=== PATIENT | female | born 1975 | race Caucasian/White ===

== ENCOUNTER 2017-06-12 09:48 | Inpatient (IN) | payer BC ==
[~2017-06-12 09:48] MED LIST: Iopamidol 370 76% 100 ML VIAL ONE
[2017-06-12 10:30] LABS: #Eosinphils 0.1 thou/uL (0.0-0.7); #Lymphocytes 1.9 thou/uL (1.20-3.40); #Monocytes 0.5 thou/uL (0.11-0.59); #Neutrophils 6.6 thou/uL (1.40-6.50); %Basophils 0.5 % (0.0-1.0); %Eosinophils 1.3 % (0.0-10.0); %Lymphocytes 20.8 % (21.0-51.0); %Monocytes 5.9 % (0.0-10.0); Hematocrit 38.5 % (36.0-47.0); Mean Platelet Volume 9.6 fL (7.4-10.4); Red Blood Cell (RBC) Count 4.37 mill/uL (4.20-5.40); White Blood Cell (WBC) Count 9.3 thou/uL (4.8-10.8)
--- NOTE | 2017-06-12 10:35 | RAD ---
2 VIEW CHEST: Date: 06/12/17 HISTORY: Dyspnea. FINDINGS: Lungs are clear of infiltrate. Heart and mediastinum unremarkable. Vascular markings within normal ra nge. Osseous structures unremarkable. IMPRESSION: Unremarkable chest. POS: [facility]
[2017-06-12 10:36] LABS: Anion Gap 15 mmol/L (10-20); BUN (Urea Nitrogen) 14 mg/dL (7.0-18.7); Calc. Creatinine Clearance 0 mL/min (70-130); Calcium 9.7 mg/dL (7.8-10.44); Carbon Dioxide 21 mmol/L (22-29); Chloride 107 mmol/L (98-107); Estimated GFR-MDRD 85
[2017-06-12] MEDS ORDERED: Metoprolol Tartrate 25 MG TAB ONE (10:55)
[2017-06-12] MEDS ORDERED: Aspirin 325 MG TAB ONE (10:55)
[2017-06-12] MEDS ORDERED: cloNIDine 0.1 MG TAB ONE (10:55)
[2017-06-12] MEDS ORDERED: Enoxaparin Sodium 100 MG/ML SYRINGE ONE (10:55)
--- NOTE | 2017-06-12 12:29 | CT ---
CT ANGIOGRAM THORAX WITH IV CONTRAST AND 3D RECONSTRUCTIONS: DATE: 06/12/17. HISTORY: Dyspnea. COMPARISON: 10/28/16. FINDINGS: There are filling defects seen within the distal aspects of the main pulmonary arteries bilaterally w ith filling defects extending into the segmental and subsegmental pulmonary arteries bilaterally in b oth the upper and lower lobes as well as right middle lobe consistent with bilateral pulmonary emboli . Thoracic aorta is normal in caliber without evidence of an aortic dissection. There is a minimal tiny focus of ground-glass density within the right upper lobe, which is of uncert ain etiology. Lungs are otherwise clear. There is no evidence of lymphadenopathy. The liver demonstrates diminished attenuation on this exam suggesting diffuse fatty infiltration. IMPRESSION: 1. Extensive bilateral pulmonary emboli. Pulmonary emboli were also noted on the prior study on 10/15 10/31, although are more prominent on today's exam. 2. Above findings discussed with Dr. Turk in the emergency department on 06/12/17 at 1134 hours. CODE CR POS: [facility]
[2017-06-12 14:49] VITALS: BMI 44.5
[2017-06-12] MEDS ORDERED: Acetaminophen 325 MG TAB PO PRN (14:56)
[2017-06-12] MEDS ORDERED: Ondansetron HCl/PF 4 MG/2 ML Vial IVP PRN (14:56)
[2017-06-12] MEDS ORDERED: Ondansetron ODT 4 MG TAB SL PRN (14:56)
[2017-06-12] MEDS ORDERED: Ondansetron HCl/PF 4 MG/2 ML Vial SLOW IVP PRN (17:40)
[2017-06-12] MEDS ORDERED: Ondansetron ODT 4 MG TAB PO PRN (17:40)
[2017-06-12] MEDS ORDERED: Acetaminophen 500 MG TAB PO PRN (17:41)
[2017-06-12] MEDS ORDERED: cloNIDine 0.1 MG TAB PO PRN (17:42)
--- NOTE | 2017-06-12 18:34 | HP ---
DATE OF ADMISSION: 06/12/2017 CHIEF COMPLAINT: Shortness of breath with mild to moderate exertion. HISTORY OF PRESENT ILLNESS: This is a 41-year-old female patient of Dr. Dwayne Munoz, who has a known history of bilateral pulmonary embolisms, first diagnosed in October of this year. She blair d symptoms at that time and brought her to the emergency room including chest pain and severe shortne ss of breath. She also had vision impairment. Just prior to the development of the PE, she had been diagnosed with a C6 disk that was out of place. She was started on anticoagulation in the hospital and followed up both Dr. Munoz and Dr. Darling from neurosurgery for the disk, due to her being on a nticoagulation, he was not going to do any surgery, so she proceeded to home exercises and her neck h as essentially returned to an asymptomatic state. There is no longer a problem. She did 3 months of Eliquis, which was discontinued in January by Dr. Munoz in an office visit. She had been asymptomatic. She noted that her O2 sats have been fine. She had purchased a little oxygen saturation meter that have been monitoring that. Because of her shortness of breath on exertion, she contacted Dr. Munoz a nd he told to go to the emergency room and workup showed worsening D-dimer and her CT angio showed an increase in intensity and amount of her pulmonary emboli while she is admitted. PAST MEDICAL HISTORY: Positive for C6-C7 disk disease that has been followed by Dr. Darling, had im provement with exercise. Currently asymptomatic. Past pulmonary emboli, see the HPI above. PAST SURGICAL HISTORY: None. ALLERGIES: No known drug allergies. MEDICATIONS: None. FAMILY HISTORY: Father had lung cancer who was a heavy smoker. No other cancers or chronic diseases noted in the family. Denies any genetic diseases. SOCIAL HISTORY: She is and has 6 children, 4 natural of her own and 2 foster children. No t oxic habits. Her is here with her. REVIEW OF SYSTEMS: She denies any fever or chills, denies any weight changes. Denies any headaches or visual changes. No trouble with chewing or swallowing. No chest pain. She had a slight dyspnea on exertion, but no shortness of breath, otherwise. She has no coughing, no hemoptysis, no hematemes is. No abdominal pain, no changes in bowel or bladder habits. No dysuria. No hematochezia, no carey na. No hematuria. She denies any weakness. She denies any paresis or paresthesias. She denies any auditory or visual hallucinations. She denies any suicidal or homicidal ideations. PHYSICAL EXAMINATION: GENERAL: She is sitting up restfully in the bed, very comfortable, in no acute distress. VITAL SIGNS: Temperature 98.7, pulse 76, BP is slightly elevated at 171/100 with a respiration of 25 and sating 94% on room air. HEENT: Normocephalic, atraumatic cranium with pupils that are equal, round, and reactive to light an d accommodation. Extraocular movements are intact. Sclerae is anicteric. NECK: Supple, no JVD, no bruits, no thyromegaly, no lymphadenopathy. LUNGS: Clear to auscultation bilaterally. No rales, rhonchi, or wheezes. HEART: S1, S2, with no rubs, murmurs, or gallops. ABDOMEN: Soft, nontender, nondistended, obese, but no organomegaly. Bowel sounds positive throughou t. GENITOURINARY: Deferred. EXTREMITIES: Show good palpable pulses x4. No clubbing, cyanosis, or edema. NEUROMUSCULAR: She is alert and oriented x4. Cranial nerves II-XII are equal and symmetrical. Ther e is no sensory or motor deficits appreciated. LABORATORY AND X-RAY FINDINGS: White count is normal at 9.3, H&H is 12.8 and 38.5 respectively, plat elets 224,000, neutrophils 71%, lymphocytes 20%, no bands. D-dimer is positive at 3.67. Sodium 139, potassium 3.8, chloride 107, bicarbonate is 21, BUN is 14, creatinine 0.75, glucose slightly elevate d at 140, but nonfasting, GFR is 85, calcium levels at 8.7. Chest x-ray shows no masses. Chest CT a ngio shows an increased prominence and bilateral showering of pulmonary emboli compared to the previo us. CT angio of the chest done in October of this year. ASSESSMENT AND PLAN: Worsening pulmonary emboli, etiology remains unknown. She will be reestablishe d on anticoagulation and then probably discharged home. Also, we will have further investigations do ne and a possible cause including DVTs and other hypercoagulable states. She did have a number of te sts done back in October including hexag phospholipid, protein C and S, APC resistance, functional anti thrombin III, factor VIII, anticardiolipin antibodies all negative. Dr. Valenzuela has been consulted and has already been to see her, Dr. Munoz who will see her in the morning.
--- NOTE | 2017-06-12 19:40 | CON ---
DATE OF CONSULTATION: 06/12/2017 Ms. Oswald is a 41-year-old female. She was diagnosed earlier this year with thromboembolic disease . She was prescribed Eliquis. She was supposed to follow up with me in January. I was going to do fol [facility] to document clearing and give her a new baseline for her thromboembolic events. She mi ssed her appointments and said she would call to reschedule her appointment, but never did. She presents with complaints of days to weeks of increased dyspnea on exertion. She has a pulse oxim eter and says her oximetries have been running around 93, would drop into the 80s when she would ambu late or exert herself. Over the weekend, she felt worse, but was better today. She will call my off ice or Dr. Munoz's office. She subsequently went to the emergency department for further recommendat ion of Dr. Munoz. I would recommend the same thing since we cannot quickly image her for thromboembo lic disease out of the office. She subsequently was found to have bilateral thromboembolic disease, felt to be more extensive than t he last CT. Fortunately have interval scanned document clearing. She did not have prothrombin [id number] mutation. Her anticardiolipin antibody screening was negative. Remainder of thrombosis panel was unremarkable. PAST MEDICAL HISTORY: Otherwise unremarkable. She is a nonsmoker, nondrinker. PHYSICAL EXAMINATION: GENERAL: She is in no distress. She is talking in complete sentences. She wants to go home. VITAL SIGNS: She is afebrile, heart rate 83, respiratory rate 15. Oximetry is 96. Blood pressure 141/87 . HEAD AND NECK: Unremarkable. LUNGS: Clear. HEART: Regular rhythm. S1 and S2 are normal. ABDOMEN: Soft and nontender. EXTREMITIES: Without asymmetry. IMPRESSION: Recurrent thromboembolic disease. PLAN: Anticoagulation for life.
--- NOTE | 2017-06-12 20:02 | ULT ---
BILATERAL LOWER EXTREMITY VENOUS DOPPLER: Date: 06/12/17 HISTORY: Pulmonary thromboembolism. COMPARISON: Lower extremity ultrasound dated 10/28/16. FINDINGS: Real-time Day scale and color Doppler with spectral analysis of the bilateral lower extremity venous system was performed with the linear transducer. Bilateral common femoral, femoral, proximal portion s of greater saphenous and deep femoral veins, as well as the popliteal and posterior tibial veins ar e interrogated. No deep venous thrombosis. Normal flow, augmentation, and compression. IMPRESSION: No deep venous thrombosis. POS: [facility]
[2017-06-12] MEDS: Enoxaparin Sodium 100 MG/ML SYRINGE SC SCH (20:35)
[2017-06-12] MEDS ORDERED: FLU VACC QS2017-18 36 mo. & older 0.5 ML SYRINGE IM ONE (21:00)
[2017-06-12 22:34] LABS: Hematocrit 36.5 % (36.0-47.0)
[2017-06-12 22:52] LABS: Calc. Creatinine Clearance 219 mL/min (70-130); Estimated GFR-MDRD Greater than 90
[2017-06-13] MEDS: Enoxaparin Sodium 100 MG/ML SYRINGE SC SCH (08:47)
[2017-06-13] MEDS ORDERED: Aspirin 325 MG TAB PO SCH (09:00)
[2017-06-13] MEDS ORDERED: Metoprolol Tartrate 25 MG TAB PO SCH (09:00)
[2017-06-13 12:28] VITALS: BP 155/87; TEMP 98.2
--- NOTE | 2017-06-13 13:02 | PRG ---
DATE OF SERVICE: 06/13/2017 Ms. Oswald is resting well. She has no medical complaints. She is feeling good. PHYSICAL EXAMINATION: VITAL SIGNS: Temperature 98.2, pulse 72, BP 155/87, O2 sats 94%. GENERAL: She is alert, active, in no distress, no chest pain is noted. LUNGS: Clear. HEART: Reveals no murmur. IMPRESSION: Pulmonary embolus. PLAN: She has been on Eliquis. She will be discharged home today on Eliquis. She will follow up [facility] in 1 week.
--- NOTE | 2017-06-13 19:30 | DIS ---
DATE OF ADMISSION: 06/12/2017 DATE OF DISCHARGE: 06/13/2017 DISCHARGE DIAGNOSIS: Pulmonary embolus, recurrent. HOSPITAL SUMMARY: A 41-year-old white female with known history of previous pulmonary embolus presen anirudh to the emergency room complaining of shortness of breath associated with some chest discomfort. She underwent CT angio, did reveal bilateral pulmonary emboli which are new shower phenomenon. She s ubsequently was admitted and begun on subcutaneous Lovenox as well as p.o. Levaquin. She tolerated a ll medicines well. By the next hospital day, she was doing well. A Pulmonary consult was obtained f alex Valenzuela who essentially recommended that she be on anticoagulation for life. She has been cont inued to Eliquis 10 mg p.o. b.i.d. She will follow up with me in 1 week.
[2017-06-15] MEDS ORDERED: Apixaban 5 MG TAB PO SCH (09:00)
--- NOTE | 2017-07-15 10:10 | EKG ---
Test Reason : SHORTNESS OF BREATH Blood Pressure : / mmHG Vent. Rate : 068 BPM Atrial Rate : 068 BPM P-R Int : 180 ms QRS Dur : 094 ms QT Int : 440 ms P-R-T Axes : 041 010 021 degrees QTc Int : 467 ms Normal sinus rhythm Prolonged QT Abnormal ECG Confirmed by BOLIVAR PATRICK M.D. ([id number]), pictures editor IMTIAZ TRENT ([id number]) on 07/15/2017 10:10:24 AM Referred By: TO Confirmed By:BOLIVAR PATRICK M.D.
== END 2017-06-13 14:23 | disposition home or self-care (01) | DRG 176 ==
LOC: SCSER 09:48 → 2NO 12:45
PROVIDERS: ADMIT Family Medicine; ATTEND Family Medicine
DX: I26.99 Other pulmonary embolism without acute cor pulmonale (principal); Z68.41 Body mass index [BMI] 40.0-44.9, adult; I10 Essential (primary) hypertension; Z86.711 Personal history of pulmonary embolism; E66.01 Morbid (severe) obesity due to excess calories
CPT/HCPCS: 36415; 71020; 71275; 80048; 85025; 85379; 90471; 90682; 93005; 93970; 96372; A4216; G0008; J1650; Q2036

== ENCOUNTER 2017-12-26 10:21 | Outpatient (CLI) | payer BC, OTHER ==
--- NOTE | 2017-12-26 13:50 | NM ---
VENTILATION PERFUSION STUDY: Date: 12-26-17 History: Pulmonary embolus without acute core pulmonale. Patient has prior extensive bilateral pulmon earnestine emboli on CTA chest on 06-12-17. Radiopharmaceutical: 15 mCi Xenon 133 gas, inhaled and 6.4 mCi Technetium 99M MAA, IV. FINDINGS: Ventilation portion of the study demonstrates normal uptake and distribution of radiotracer seen thro ughout the lungs bilaterally with normal washout present on washout images. Perfusion imaging demonstrates no segmental or subsegmental perfusion defect. Normal perfusion gradie nt is present. There is no evidence of a ventilation/perfusion mismatch. No chest x-ray is available for direct comparison. IMPRESSION: Normal ventilation perfusion study with low probability for pulmonary embolus. POS: [facility]
== END 2017-12-26 10:22 | disposition home or self-care (01) ==
LOC: NM 10:21
PROVIDERS: ATTEND Internal Medicine Critical Care Medicine
DX: I26.99 Other pulmonary embolism without acute cor pulmonale (principal)
CPT/HCPCS: 78582; A9540; A9558